=== PATIENT | male | born 1955 | race African-American/Black ===

== ENCOUNTER 2020-09-03 19:28 | Inpatient (IN) ==
[2020-09-03 20:08] LABS: INR 1.7; Partial Thromboplastin Time 26.2 SECS (23.9-33.8)
[2020-09-03 20:19] LABS: Basophils % 0.2 % (0.0-0.8); Eosinophils % 0.1 % (0.00-10.9); Hematocrit 42.7 VOL% (42.0-52.0); Immature Granulocytes % 1.1 %; Immature Granulocytes Absolute 0.11 #; Lymphocytes # 1.5 10*3/uL (1.4-4.0); Lymphocytes % 14.8 % (21.2-54.2); Mean Corpuscular HGB Conc 32.8 GM/DL (32-36); Mean Corpuscular Volume 87.5 FL (87-102); Mean Platelet Volume 9.2 FL (9.6-12.0); Monocytes % 9.1 % (1.7-12.7); NRBC # 0.02 10*3/uL; Neutrophils % 74.7 % (38.7-73.9); Platelet Count 285 T/CUMM (130-400); Red Blood Count 4.88 MC/CUMM (3.8-5.5); Red Cell Distribution Width 21.5 % (9.3-17.3); White Blood Count 9.8 T/CUMM (4-12)
[2020-09-03] MEDS ORDERED: FUROSEMIDE 40 MG/4 ML VIAL IV STA (20:22)
[2020-09-03 20:37] LABS: Albumin 1.7 G/DL (3.4-5.0); Bilirubin,Total 3.4 MG/DL (0.2-1.0); Osmolality,Calculated 265.5 MOS/KG (273-304); Potassium 4.9 MMOL/L (3.5-5.1); Total Protein 7.4 G/DL (6.4-8.3)
[2020-09-03 21:17] LABS: Bilirubin,Urine Negative (Negative); Blood, Urine Negative (Negative); Glucose,Urine (UA) Negative (Negative); Hyaline Casts,Urine 3 /LPF (0-3); Ketones,Urine Negative (Negative); Mucus,Urine Occasional /LPF (Occasional); Nitrite,Urine Negative (Negative); Protein,Urine 100 MG/DL; RBC,Urine 3 /HPF (0-4); Squamous Epithelial Cell,Urine Occasional /HPF (0-10); Urine Appearance CLEAR (Clear); Urine Color Yellow (Yellow); Urine Specific Gravity 1.006 (1.001-1.035); WBC,Urine 2 /HPF (0-6)
[2020-09-03] MEDS ORDERED: GLUCAGON 1 MG VIAL IM PRN (22:12)
[2020-09-03] MEDS ORDERED: hydrALAZINE 20 MG/1 ML VIAL IV PRN (22:12)
[2020-09-03] MEDS ORDERED: MORPHINE 4 MG/1 ML VIAL IV PRN (22:12)
[2020-09-03] MEDS ORDERED: diphenhydrAMINE CAP 25 MG CAPSULE PO PRN (22:12)
[2020-09-03] MEDS ORDERED: ONDANSETRON 4 MG/2 ML VIAL IV PRN (22:12)
[2020-09-03] MEDS ORDERED: DEXTROSE 50% 25 GM/50 ML VIAL IV PRN (22:12)
[2020-09-03] MEDS ORDERED: NICOTINE 21 MG/24 HR PATCH TRANSDERM PRN (22:12)
[2020-09-03] MEDS ORDERED: ACETAMINOPHEN 325 MG TABLET PO PRN (22:12)
[2020-09-03] MEDS ORDERED: guaiFENesin/DM ER 600-30 MG TABLET PO PRN (22:12)
[2020-09-03 23:13] LABS: Risk Ratio 4.9; VLDL CHOLESTEROL 22.4 MG/DL
[2020-09-03] MEDS ORDERED: ALBUTEROL 2.5 MG/3 ML NEB RESP TX PRN (23:14)
[2020-09-03 23:16] LABS: Albumin 1.7 G/DL (3.4-5.0); Bilirubin,Direct 1.73 MG/DL (0.0-0.20); Bilirubin,Indirect 1.8 MG/DL (0.0-1.0); Bilirubin,Total 3.5 MG/DL (0.2-1.0); Total Protein 7.5 G/DL (6.4-8.3)
[2020-09-03] MEDS: AZITHROMYCIN INJ 500 MG in SODIUM CHLORIDE 0.9% 250 ML IV SCH (23:21)
[2020-09-03] MEDS: cefTRIAXone 1,000 MG in SYRINGE 1 EACH IV SCH (23:21)
[2020-09-04 01:29] LABS: Hepatitis B Surface Ag Quant < 0.10 Index; Hepatitis B Surface Ag Result Non-Reactive (NonReactive)
[2020-09-04 01:49] LABS: Hepatitis B Core IgM Quant < 0.05 Index; Hepatitis C Virus Ab Quant 0.11 Index; Hepatitis C Virus Ab Result Non-Reactive (NonReactive)
[2020-09-04] MEDS: ALBUTEROL/IPRATROPIUM 3 ML NEB RESP TX SCH ×4 (02:00→19:21)
[2020-09-04 05:36] LABS: Albumin 1.7 G/DL (3.4-5.0); Bilirubin,Total 3.8 MG/DL (0.2-1.0); Calcium 8.3 MG/DL (8.5-10.1); Total Protein 7.1 G/DL (6.4-8.3)
[2020-09-04] MEDS: FUROSEMIDE 40 MG/4 ML VIAL IV SCH ×2 (08:52→16:17)
[2020-09-04] MEDS: ASPIRIN EC 81 MG TABLET PO SCH (08:53)
[2020-09-04] MEDS ORDERED: carvediloL 6.25 MG TABLET PO SCH (09:00)
[2020-09-04] MEDS ORDERED: ENOXAPARIN 40 MG/0.4 ML SYRINGE SUBCUT SCH (09:00)
[2020-09-04 09:07] LABS: Barbiturates Screen,Urine Negative (Negative); Benzodiazepines Screen,Urine Negative (Negative); Cannabinoid Screen,Urine Negative (Negative); Opiate Screen,Urine Negative (Negative); Phencyclidine Screen,Urine Negative (Negative)
[2020-09-04] MEDS ORDERED: LOSARTAN 25 MG TABLET PO SCH ×2 (10:33→10:38)
[2020-09-04] MEDS ORDERED: carvediloL 6.25 MG TABLET PO ONE (10:37)
[2020-09-04 11:02] LABS: Lymphocytes,Pleural Fluid 75 %; Monocytes,Pleural Fluid 1 %; Neutrophils,Pleural Fluid 24 %
[2020-09-04 11:04] LABS: Glucose,Pleural Fluid 91 MG/DL; LDH,Body Fluid 358 U/L
[2020-09-04 11:06] LABS: RBC,Pleural Fluid 36114 T/CUMM
[2020-09-04] MEDS: carvediloL 3.125 MG TABLET PO STA ×2 (11:25→12:02)
[2020-09-04] MEDS ORDERED: ENOXAPARIN 80 MG/0.8 ML SYRINGE SUBCUT ONE (11:57)
[2020-09-04] MEDS ORDERED: carvediloL 12.5 MG TABLET PO SCH (21:00)
[2020-09-04] MEDS: LOSARTAN 25 MG TABLET PO SCH (21:16)
[2020-09-04] MEDS: carvediloL 3.125 MG TABLET PO SCH (21:16)
[2020-09-05] MEDS: cefTRIAXone 1,000 MG in SYRINGE 1 EACH IV SCH
[2020-09-05] MEDS: AZITHROMYCIN INJ 500 MG in SODIUM CHLORIDE 0.9% 250 ML IV SCH (00:05)
[2020-09-05] MEDS: ALBUTEROL/IPRATROPIUM 3 ML NEB RESP TX SCH ×4 (01:28→19:28)
[2020-09-05] MEDS: LOSARTAN 25 MG TABLET PO SCH ×2 (09:02→21:09)
[2020-09-05] MEDS: ASPIRIN EC 81 MG TABLET PO SCH (09:02)
[2020-09-05] MEDS: carvediloL 3.125 MG TABLET PO SCH ×2 (09:02→21:09)
[2020-09-05] MEDS: FUROSEMIDE 40 MG/4 ML VIAL IV SCH ×2 (11:26→18:02)
[2020-09-05] MEDS: ENOXAPARIN 120 MG/0.8 ML SYRINGE SUBCUT SCH ×2 (14:16)
[2020-09-05] MEDS: SPIRONOLACTONE 25 MG TABLET PO SCH ×2 (14:16→21:09)
[2020-09-06] MEDS: cefTRIAXone 1,000 MG in SYRINGE 1 EACH IV SCH ×2 (00:40→23:49)
[2020-09-06] MEDS: ENOXAPARIN 120 MG/0.8 ML SYRINGE SUBCUT SCH ×3 (00:40→23:59)
[2020-09-06] MEDS: AZITHROMYCIN INJ 500 MG in SODIUM CHLORIDE 0.9% 250 ML IV SCH ×2 (00:45→23:53)
[2020-09-06] MEDS: ALBUTEROL/IPRATROPIUM 3 ML NEB RESP TX SCH ×4 (02:05→19:02)
[2020-09-06 05:38] LABS: Basophils % 0.2 % (0.0-0.8); Eosinophils % 0.2 % (0.00-10.9); Hematocrit 42.6 VOL% (42.0-52.0); Hemoglobin 13.5 GM/DL (14.0-18.0); Immature Granulocytes % 1.3 %; Immature Granulocytes Absolute 0.14 #; Lymphocytes # 1.9 10*3/uL (1.4-4.0); Lymphocytes % 17.2 % (21.2-54.2); Mean Corpuscular HGB Conc 31.7 GM/DL (32-36); Mean Corpuscular Volume 89.3 FL (87-102); Mean Platelet Volume 9.7 FL (9.6-12.0); Monocytes % 10.8 % (1.7-12.7); Neutrophils % 70.3 % (38.7-73.9); Platelet Count 323 T/CUMM (130-400); Red Blood Count 4.77 MC/CUMM (3.8-5.5); Red Cell Distribution Width 21.1 % (9.3-17.3); White Blood Count 11.1 T/CUMM (4-12)
[2020-09-06 06:22] LABS: Calcium 8.1 MG/DL (8.5-10.1); Osmolality,Calculated 271.2 MOS/KG (273-304); Potassium 3.6 MMOL/L (3.5-5.1)
[2020-09-06] MEDS: LOSARTAN 25 MG TABLET PO SCH ×2 (08:46→21:20)
[2020-09-06] MEDS: carvediloL 3.125 MG TABLET PO SCH ×2 (08:46→21:20)
[2020-09-06] MEDS: FUROSEMIDE 40 MG/4 ML VIAL IV SCH ×2 (08:46→18:25)
[2020-09-06] MEDS: SPIRONOLACTONE 25 MG TABLET PO SCH ×2 (08:47→21:20)
[2020-09-06] MEDS: ASPIRIN EC 81 MG TABLET PO SCH (08:47)
[2020-09-06] MEDS ORDERED: BENZONATATE 100 MG CAPSULE PO PRN (14:02)
[2020-09-06] MEDS ORDERED: BENZONATATE 100 MG CAPSULE PO ONE (14:02)
[2020-09-07] MEDS: ALBUTEROL/IPRATROPIUM 3 ML NEB RESP TX SCH ×4 (01:18→19:22)
[2020-09-07 05:14] LABS: Basophils # 0.1 10*3/uL (0.0-0.2); Basophils % 0.5 % (0.0-0.8); Eosinophils % 0.3 % (0.00-10.9); Hematocrit 39.7 VOL% (42.0-52.0); Hemoglobin 12.9 GM/DL (14.0-18.0); Lymphocytes # 1.8 10*3/uL (1.4-4.0); Lymphocytes % 17.1 % (21.2-54.2); Mean Corpuscular HGB Conc 32.5 GM/DL (32-36); Mean Platelet Volume 9.7 FL (9.6-12.0); Monocytes % 12.1 % (1.7-12.7); Platelet Count 318 T/CUMM (130-400); Red Blood Count 4.51 MC/CUMM (3.8-5.5); White Blood Count 10.4 T/CUMM (4-12)
[2020-09-07 05:34] LABS: Calcium 7.8 MG/DL (8.5-10.1); Potassium 3.6 MMOL/L (3.5-5.1)
[2020-09-07] MEDS ORDERED: POTASSIUM CHLORIDE 20 MEQ TABLET PO ONE (08:10)
[2020-09-07] MEDS ORDERED: MAGNESIUM SULF RIDER 2 GM in PREMIX 1 EACH IV ONE (08:10)
[2020-09-07] MEDS: LOSARTAN 25 MG TABLET PO SCH ×2 (08:47→21:31)
[2020-09-07] MEDS: ASPIRIN EC 81 MG TABLET PO SCH (08:47)
[2020-09-07] MEDS: SPIRONOLACTONE 25 MG TABLET PO SCH ×2 (08:48→21:35)
[2020-09-07] MEDS: APIXABAN 5 MG TABLET PO SCH ×2 (08:48→21:31)
[2020-09-07] MEDS: carvediloL 3.125 MG TABLET PO SCH ×2 (08:49→21:35)
[2020-09-07] MEDS: FUROSEMIDE 40 MG/4 ML VIAL IV SCH ×2 (09:00→19:36)
[2020-09-07] MEDS: cefTRIAXone 1,000 MG in SYRINGE 1 EACH IV SCH (22:10)
[2020-09-07] MEDS: AZITHROMYCIN INJ 500 MG in SODIUM CHLORIDE 0.9% 250 ML IV SCH (22:30)
[2020-09-08] MEDS: ALBUTEROL/IPRATROPIUM 3 ML NEB RESP TX SCH ×4 (01:00→19:23)
[2020-09-08 05:54] LABS: Basophils # 0.1 10*3/uL (0.0-0.2); Basophils % 0.6 % (0.0-0.8); Eosinophils # 0.1 10*3/uL (0.0-0.87); Eosinophils % 0.7 % (0.00-10.9); Hematocrit 40.9 VOL% (42.0-52.0); Hemoglobin 13.5 GM/DL (14.0-18.0); Immature Granulocytes % 0.9 %; Immature Granulocytes Absolute 0.09 #; Lymphocytes # 1.9 10*3/uL (1.4-4.0); Mean Corpuscular Volume 86.8 FL (87-102); Mean Platelet Volume 9.5 FL (9.6-12.0); Monocytes % 13.7 % (1.7-12.7); Neutrophils % 66.1 % (38.7-73.9); Platelet Count 323 T/CUMM (130-400); Red Blood Count 4.71 MC/CUMM (3.8-5.5); Red Cell Distribution Width 20.9 % (9.3-17.3); White Blood Count 10.4 T/CUMM (4-12)
[2020-09-08 06:18] LABS: Albumin 1.4 G/DL (3.4-5.0); Bilirubin,Total 2.3 MG/DL (0.2-1.0); Calcium 8.1 MG/DL (8.5-10.1); Osmolality,Calculated 273.8 MOS/KG (273-304); Potassium 3.3 MMOL/L (3.5-5.1); Total Protein 6.7 G/DL (6.4-8.3)
[2020-09-08] MEDS ORDERED: POTASSIUM CHLORIDE 20 MEQ TABLET PO ONE (08:31)
[2020-09-08] MEDS ORDERED: AMIODARONE 200 MG TABLET PO SCH ×2 (09:00→21:00)
[2020-09-08] MEDS: FUROSEMIDE 40 MG/4 ML VIAL IV SCH ×2 (09:17→16:10)
[2020-09-08] MEDS: carvediloL 3.125 MG TABLET PO SCH (10:41)
[2020-09-08] MEDS: SPIRONOLACTONE 25 MG TABLET PO SCH ×2 (11:02→21:01)
[2020-09-08] MEDS: ASPIRIN EC 81 MG TABLET PO SCH (11:03)
[2020-09-08] MEDS: LOSARTAN 25 MG TABLET PO SCH ×2 (11:07→21:01)
[2020-09-08] MEDS: ENOXAPARIN 120 MG/0.8 ML SYRINGE SUBCUT SCH (16:05)
[2020-09-08] MEDS ORDERED: carvediloL 6.25 MG TABLET PO SCH (21:00)
[2020-09-08] MEDS: cefTRIAXone 1,000 MG in SYRINGE 1 EACH IV SCH (22:18)
[2020-09-09] MEDS: ALBUTEROL/IPRATROPIUM 3 ML NEB RESP TX SCH ×4 (00:34→20:10)
[2020-09-09] MEDS: ENOXAPARIN 120 MG/0.8 ML SYRINGE SUBCUT SCH ×2 (04:48→15:20)
[2020-09-09 05:59] LABS: Basophils # 0.1 10*3/uL (0.0-0.2); Basophils % 0.8 % (0.0-0.8); Eosinophils # 0.1 10*3/uL (0.0-0.87); Eosinophils % 0.7 % (0.00-10.9); Hematocrit 38.1 VOL% (42.0-52.0); Hemoglobin 12.5 GM/DL (14.0-18.0); Immature Granulocytes % 0.8 %; Immature Granulocytes Absolute 0.08 #; Lymphocytes # 1.5 10*3/uL (1.4-4.0); Mean Corpuscular HGB Conc 32.8 GM/DL (32-36); Mean Corpuscular Volume 86.4 FL (87-102); Mean Platelet Volume 9.5 FL (9.6-12.0); Monocytes % 13.1 % (1.7-12.7); Neutrophils % 69.6 % (38.7-73.9); Platelet Count 332 T/CUMM (130-400); Red Blood Count 4.41 MC/CUMM (3.8-5.5); Red Cell Distribution Width 20.5 % (9.3-17.3); White Blood Count 10.1 T/CUMM (4-12)
[2020-09-09 06:29] LABS: Calcium 7.9 MG/DL (8.5-10.1); Osmolality,Calculated 273.8 MOS/KG (273-304); Potassium 3.4 MMOL/L (3.5-5.1)
[2020-09-09 06:32] LABS: Albumin 1.4 G/DL (3.4-5.0); Bilirubin,Total 2.1 MG/DL (0.2-1.0); Calcium 7.9 MG/DL (8.5-10.1); Osmolality,Calculated 273.8 MOS/KG (273-304); Potassium 3.4 MMOL/L (3.5-5.1); Total Protein 6.3 G/DL (6.4-8.3)
[2020-09-09] MEDS ORDERED: POTASSIUM CHLORIDE 20 MEQ TABLET PO ONE (08:32)
[2020-09-09] MEDS: LOSARTAN 25 MG TABLET PO SCH ×2 (09:02→20:52)
[2020-09-09] MEDS: ASPIRIN EC 81 MG TABLET PO SCH (09:02)
[2020-09-09] MEDS: SPIRONOLACTONE 25 MG TABLET PO SCH ×2 (09:02→20:52)
[2020-09-09] MEDS: carvediloL 12.5 MG TABLET PO SCH ×2 (09:03→16:49)
[2020-09-09] MEDS: FUROSEMIDE 40 MG/4 ML VIAL IV SCH ×2 (10:52→16:49)
[2020-09-09] MEDS: cefTRIAXone 1,000 MG in SYRINGE 1 EACH IV SCH (22:32)
[2020-09-10] MEDS: ALBUTEROL/IPRATROPIUM 3 ML NEB RESP TX SCH ×4 (01:02→19:26)
[2020-09-10] MEDS: ENOXAPARIN 120 MG/0.8 ML SYRINGE SUBCUT SCH (04:35)
[2020-09-10 05:35] LABS: Basophils # 0.1 10*3/uL (0.0-0.2); Basophils % 0.6 % (0.0-0.8); Eosinophils # 0.1 10*3/uL (0.0-0.87); Hematocrit 37.6 VOL% (42.0-52.0); Hemoglobin 12.3 GM/DL (14.0-18.0); Immature Granulocytes % 0.7 %; Immature Granulocytes Absolute 0.08 #; Lymphocytes % 18.2 % (21.2-54.2); Mean Corpuscular HGB Conc 32.7 GM/DL (32-36); Mean Platelet Volume 9.4 FL (9.6-12.0); Monocytes % 13.5 % (1.7-12.7); Platelet Count 354 T/CUMM (130-400); Red Blood Count 4.37 MC/CUMM (3.8-5.5); Red Cell Distribution Width 20.3 % (9.3-17.3); White Blood Count 10.9 T/CUMM (4-12)
[2020-09-10 06:10] LABS: Albumin 1.4 G/DL (3.4-5.0); Bilirubin,Total 2.3 MG/DL (0.2-1.0); Osmolality,Calculated 267.2 MOS/KG (273-304); Potassium 3.3 MMOL/L (3.5-5.1); Total Protein 6.7 G/DL (6.4-8.3)
[2020-09-10] MEDS ORDERED: POTASSIUM CHLORIDE 20 MEQ PACK PO ONE (07:45)
[2020-09-10] MEDS: carvediloL 12.5 MG TABLET PO SCH ×2 (09:05→16:15)
[2020-09-10] MEDS: ASPIRIN EC 81 MG TABLET PO SCH (09:05)
[2020-09-10] MEDS: LOSARTAN 25 MG TABLET PO SCH ×2 (09:05→20:52)
[2020-09-10] MEDS: SPIRONOLACTONE 25 MG TABLET PO SCH ×2 (09:05→20:52)
[2020-09-10] MEDS: FUROSEMIDE 40 MG/4 ML VIAL IV SCH ×2 (09:10→16:32)
[2020-09-10] MEDS ORDERED: MAGNESIUM SULF RIDER 2 GM in PREMIX 1 EACH IV ONE (09:17)
[2020-09-10] MEDS ORDERED: POTASSIUM CHLORIDE 20 MEQ TABLET PO ONE (09:17)
[2020-09-10] MEDS: cefTRIAXone 1,000 MG in SYRINGE 1 EACH IV SCH (22:01)
[2020-09-11] MEDS: ALBUTEROL/IPRATROPIUM 3 ML NEB RESP TX SCH ×4 (00:22→19:11)
[2020-09-11 05:56] LABS: Basophils % 0.4 % (0.0-0.8); Eosinophils # 0.2 10*3/uL (0.0-0.87); Eosinophils % 1.9 % (0.00-10.9); Hematocrit 37.4 VOL% (42.0-52.0); Hemoglobin 12.1 GM/DL (14.0-18.0); Lymphocytes # 2.1 10*3/uL (1.4-4.0); Lymphocytes % 20.1 % (21.2-54.2); Mean Corpuscular HGB Conc 32.4 GM/DL (32-36); Mean Corpuscular Volume 87.8 FL (87-102); Mean Platelet Volume 9.5 FL (9.6-12.0); Monocytes % 12.4 % (1.7-12.7); Neutrophils % 64.2 % (38.7-73.9); Platelet Count 373 T/CUMM (130-400); Red Blood Count 4.26 MC/CUMM (3.8-5.5); White Blood Count 10.2 T/CUMM (4-12)
[2020-09-11 06:19] LABS: Albumin 1.4 G/DL (3.4-5.0); Bilirubin,Total 1.9 MG/DL (0.2-1.0); Calcium 7.7 MG/DL (8.5-10.1); Osmolality,Calculated 268.2 MOS/KG (273-304); Potassium 3.5 MMOL/L (3.5-5.1); Total Protein 6.7 G/DL (6.4-8.3)
[2020-09-11] MEDS: FUROSEMIDE 40 MG/4 ML VIAL IV SCH ×2 (09:19→15:37)
[2020-09-11] MEDS: SPIRONOLACTONE 25 MG TABLET PO SCH ×2 (09:20→21:07)
[2020-09-11] MEDS: LOSARTAN 25 MG TABLET PO SCH ×2 (09:20→21:07)
[2020-09-11] MEDS: ASPIRIN EC 81 MG TABLET PO SCH (09:20)
[2020-09-11] MEDS: carvediloL 12.5 MG TABLET PO SCH (09:20)
[2020-09-11] MEDS: ISOSORBIDE DINITRATE 20 MG TABLET PO SCH ×2 (15:37→21:07)
[2020-09-11] MEDS: hydrALAZINE 25 MG TABLET PO SCH ×2 (15:37→21:07)
[2020-09-11] MEDS: carvediloL 6.25 MG TABLET PO SCH (21:07)
[2020-09-11] MEDS: APIXABAN 5 MG TABLET PO SCH (21:08)
[2020-09-12] MEDS: ALBUTEROL/IPRATROPIUM 3 ML NEB RESP TX SCH ×4 (01:00→18:50)
[2020-09-12 04:38] LABS: Basophils % 0.3 % (0.0-0.8); Eosinophils # 0.2 10*3/uL (0.0-0.87); Hematocrit 34.9 VOL% (42.0-52.0); Hemoglobin 11.5 GM/DL (14.0-18.0); Immature Granulocytes % 0.9 %; Immature Granulocytes Absolute 0.08 #; Lymphocytes # 2.2 10*3/uL (1.4-4.0); Lymphocytes % 23.4 % (21.2-54.2); Mean Corpuscular Volume 88.1 FL (87-102); Mean Platelet Volume 9.2 FL (9.6-12.0); Monocytes % 14.8 % (1.7-12.7); Neutrophils % 58.6 % (38.7-73.9); Platelet Count 356 T/CUMM (130-400); Red Blood Count 3.96 MC/CUMM (3.8-5.5); Red Cell Distribution Width 19.7 % (9.3-17.3); White Blood Count 9.2 T/CUMM (4-12)
[2020-09-12 04:52] LABS: Calcium 7.6 MG/DL (8.5-10.1); Osmolality,Calculated 265.4 MOS/KG (273-304); Potassium 3.2 MMOL/L (3.5-5.1)
[2020-09-12] MEDS: carvediloL 6.25 MG TABLET PO SCH ×2 (08:58→20:41)
[2020-09-12] MEDS: LOSARTAN 25 MG TABLET PO SCH (08:58)
[2020-09-12] MEDS: ISOSORBIDE DINITRATE 20 MG TABLET PO SCH ×3 (08:58→20:41)
[2020-09-12] MEDS: SPIRONOLACTONE 25 MG TABLET PO SCH ×2 (08:58→20:44)
[2020-09-12] MEDS: APIXABAN 5 MG TABLET PO SCH ×2 (08:58→20:41)
[2020-09-12] MEDS: FUROSEMIDE 40 MG/4 ML VIAL IV SCH ×2 (08:58→15:14)
[2020-09-12] MEDS: ASPIRIN EC 81 MG TABLET PO SCH (08:58)
[2020-09-12] MEDS: hydrALAZINE 25 MG TABLET PO SCH ×3 (08:58→20:41)
[2020-09-12] MEDS ORDERED: MAGNESIUM SULF RIDER 2 GM in PREMIX 1 EACH IV ONE (09:06)
[2020-09-12] MEDS ORDERED: POTASSIUM CHLORIDE 20 MEQ TABLET PO ONE (09:06)
[2020-09-12] MEDS: BENZONATATE 100 MG CAPSULE PO SCH ×3 (15:14→20:42)
[2020-09-12] MEDS: SACUBITRIL/VALSARTAN 49-51 MG TABLET PO SCH (20:41)
[2020-09-13 05:31] LABS: Basophils # 0.1 10*3/uL (0.0-0.2); Basophils % 0.6 % (0.0-0.8); Eosinophils # 0.2 10*3/uL (0.0-0.87); Eosinophils % 1.8 % (0.00-10.9); Hematocrit 37.9 VOL% (42.0-52.0); Hemoglobin 12.3 GM/DL (14.0-18.0); Lymphocytes # 2.4 10*3/uL (1.4-4.0); Lymphocytes % 25.5 % (21.2-54.2); Mean Corpuscular HGB Conc 32.5 GM/DL (32-36); Mean Corpuscular Volume 88.6 FL (87-102); Mean Platelet Volume 9.4 FL (9.6-12.0); Neutrophils % 58.1 % (38.7-73.9); Platelet Count 385 T/CUMM (130-400); Red Blood Count 4.28 MC/CUMM (3.8-5.5); Red Cell Distribution Width 19.7 % (9.3-17.3); White Blood Count 9.6 T/CUMM (4-12)
[2020-09-13 06:00] LABS: Calcium 7.7 MG/DL (8.5-10.1); Osmolality,Calculated 269.1 MOS/KG (273-304); Potassium 3.5 MMOL/L (3.5-5.1)
[2020-09-13] MEDS: ALBUTEROL/IPRATROPIUM 3 ML NEB RESP TX SCH ×4 (06:09→19:13)
[2020-09-13] MEDS: FUROSEMIDE 40 MG/4 ML VIAL IV SCH ×2 (09:52→15:51)
[2020-09-13] MEDS: BENZONATATE 100 MG CAPSULE PO SCH ×3 (09:53→21:11)
[2020-09-13] MEDS: hydrALAZINE 25 MG TABLET PO SCH ×3 (09:53→21:14)
[2020-09-13] MEDS: carvediloL 6.25 MG TABLET PO SCH ×2 (09:53→21:11)
[2020-09-13] MEDS: SPIRONOLACTONE 25 MG TABLET PO SCH ×2 (09:54→21:14)
[2020-09-13] MEDS: APIXABAN 5 MG TABLET PO SCH ×2 (09:54→21:11)
[2020-09-13] MEDS: ASPIRIN EC 81 MG TABLET PO SCH (09:54)
[2020-09-13] MEDS: ISOSORBIDE DINITRATE 20 MG TABLET PO SCH ×3 (09:54→21:15)
[2020-09-13] MEDS: SACUBITRIL/VALSARTAN 49-51 MG TABLET PO SCH ×2 (09:55→21:14)
[2020-09-13] MEDS ORDERED: metOLazone 5 MG TABLET PO ONE (15:30)
[2020-09-14] MEDS: ALBUTEROL/IPRATROPIUM 3 ML NEB RESP TX SCH ×4 (01:48→19:37)
[2020-09-14 05:52] LABS: Basophils # 0.1 10*3/uL (0.0-0.2); Basophils % 0.7 % (0.0-0.8); Eosinophils # 0.2 10*3/uL (0.0-0.87); Eosinophils % 1.8 % (0.00-10.9); Hematocrit 39.5 VOL% (42.0-52.0); Hemoglobin 13.2 GM/DL (14.0-18.0); Immature Granulocytes % 1.1 %; Immature Granulocytes Absolute 0.11 #; Lymphocytes # 2.6 10*3/uL (1.4-4.0); Lymphocytes % 25.5 % (21.2-54.2); Mean Corpuscular HGB Conc 33.4 GM/DL (32-36); Mean Corpuscular Volume 86.6 FL (87-102); Mean Platelet Volume 9.5 FL (9.6-12.0); Monocytes % 12.7 % (1.7-12.7); Neutrophils % 58.2 % (38.7-73.9); Platelet Count 452 T/CUMM (130-400); Red Blood Count 4.56 MC/CUMM (3.8-5.5); Red Cell Distribution Width 19.6 % (9.3-17.3); White Blood Count 10.4 T/CUMM (4-12)
[2020-09-14 06:07] LABS: Calcium 7.8 MG/DL (8.5-10.1); Osmolality,Calculated 265.2 MOS/KG (273-304); Potassium 3.6 MMOL/L (3.5-5.1)
[2020-09-14] MEDS: SPIRONOLACTONE 25 MG TABLET PO SCH ×2 (08:25→20:44)
[2020-09-14] MEDS: carvediloL 6.25 MG TABLET PO SCH ×2 (08:25→20:44)
[2020-09-14] MEDS: hydrALAZINE 25 MG TABLET PO SCH (08:25)
[2020-09-14] MEDS: metOLazone 5 MG TABLET PO SCH (08:25)
[2020-09-14] MEDS: ISOSORBIDE DINITRATE 20 MG TABLET PO SCH (08:26)
[2020-09-14] MEDS: BENZONATATE 100 MG CAPSULE PO SCH ×3 (08:27→20:43)
[2020-09-14] MEDS: SACUBITRIL/VALSARTAN 49-51 MG TABLET PO SCH (08:27)
[2020-09-14] MEDS: ASPIRIN EC 81 MG TABLET PO SCH (08:27)
[2020-09-14] MEDS: APIXABAN 5 MG TABLET PO SCH ×2 (08:28→20:44)
[2020-09-14] MEDS: FUROSEMIDE 40 MG/4 ML VIAL IV SCH ×2 (08:34→16:05)
[2020-09-15] MEDS: ALBUTEROL/IPRATROPIUM 3 ML NEB RESP TX SCH ×2 (01:00→07:14)
[2020-09-15 06:08] LABS: Basophils # 0.1 10*3/uL (0.0-0.2); Basophils % 0.9 % (0.0-0.8); Eosinophils # 0.2 10*3/uL (0.0-0.87); Eosinophils % 1.9 % (0.00-10.9); Hematocrit 43.7 VOL% (42.0-52.0); Hemoglobin 14.2 GM/DL (14.0-18.0); Lymphocytes # 2.8 10*3/uL (1.4-4.0); Lymphocytes % 26.8 % (21.2-54.2); Mean Corpuscular HGB Conc 32.5 GM/DL (32-36); Mean Corpuscular Volume 87.6 FL (87-102); Mean Platelet Volume 9.2 FL (9.6-12.0); Monocytes % 11.8 % (1.7-12.7); Neutrophils % 57.6 % (38.7-73.9); Platelet Count 485 T/CUMM (130-400); Red Blood Count 4.99 MC/CUMM (3.8-5.5); Red Cell Distribution Width 19.8 % (9.3-17.3); White Blood Count 10.4 T/CUMM (4-12)
[2020-09-15 06:28] LABS: Calcium 8.4 MG/DL (8.5-10.1); Osmolality,Calculated 260.7 MOS/KG (273-304); Potassium 3.8 MMOL/L (3.5-5.1)
[2020-09-15] MEDS ORDERED: metOLazone 2.5 MG TABLET PO SCH (08:29)
[2020-09-15] MEDS: metOLazone 5 MG TABLET PO SCH (08:37)
[2020-09-15] MEDS: FUROSEMIDE 40 MG/4 ML VIAL IV SCH (08:37)
[2020-09-15] MEDS: BENZONATATE 100 MG CAPSULE PO SCH (08:42)
[2020-09-15] MEDS: APIXABAN 5 MG TABLET PO SCH (08:42)
[2020-09-15] MEDS: ASPIRIN EC 81 MG TABLET PO SCH (08:42)
[2020-09-15] MEDS: FUROSEMIDE 80 MG TABLET PO SCH ×2 (08:42→08:48)
[2020-09-15] MEDS: carvediloL 6.25 MG TABLET PO SCH (08:42)
[2020-09-15] MEDS: SPIRONOLACTONE 25 MG TABLET PO SCH (08:42)
[2020-09-15] MEDS ORDERED: FUROSEMIDE 40 MG/4 ML VIAL IV ONE (08:48)
[2020-09-15] MEDS ORDERED: MULTIVITAMIN (CENTRUM) TABLET PO SCH (09:00)
[2020-09-15] MEDS ORDERED: LOSARTAN 25 MG TABLET PO SCH ×2 (09:00)
[2020-09-15 11:25] VITALS: BP 98/68
[2020-09-16] MEDS ORDERED: TORSEMIDE 20 MG TABLET PO SCH (09:00)
== END 2020-09-15 14:27 | disposition home or self-care (01) | DRG 134 ==
LOC: N.ED 19:28 → SUATTDRO 22:12 → N.EDINP 22:12 → N.TELES 09-04 15:05
PROVIDERS: ADMIT Internal Medicine; ATTEND Internal Medicine Geriatric Medicine
PROC: IRTHORA (2020-09-11 14:23)